=== PATIENT | male | born 1960 | race Caucasian/White ===

== ENCOUNTER → 2021-08-06 | Outpatient (CLI) | payer OTHER ==
[~2021-08-06] MED LIST: PROTONIX40 M2 PO; TIMOLOL MALEATE5 M1 OPHTHALMIC; TYLENOL325 MG PO
[2021-08-06 09:00] LABS: URINE BLOOD NEGATIVE (Negative); URINE CLARITY CLEAR; URINE COLOR YELLOW; URINE GLUCOSE-RANDOM* NEGATIVE (Negative); URINE KETONES TRACE (Negative); URINE LEUKOCYTES-REFLEX NEGATIVE (Negative); URINE NITRITE-REFLEX NEGATIVE (Negative); URINE PROTEIN (DIPSTICK) NEGATIVE (Negative); URINE SPECIFIC GRAVITY >= 1.030 (1.005-1.035); URINE UROBILINOGEN 0.2 E.U./dl (0.2-1.0)
[2021-08-06 09:05] LABS: ICTOTEST (BILI CONFIRMATORY) Negative (Negative); URINE BILIRUBIN NEGATIVE (Negative)
[2021-08-06 09:12] LABS: HEMATOCRIT 42.4 % (42.0-52.0); HEMOGLOBIN 14.5 gm/dL (14.0-18.0); MCH 30.3 pg (26.0-34.0); MCHC 34.1 g/dL (28.0-37.0); MCV 88.8 fL (80.0-100.0); RBC 4.78 mil/uL (4.50-6.00); RDW 12.9 % (10.5-14.5); WBC 7.2 thou/uL (4.0-11.0)
--- NOTE | 2021-08-06 09:12 | EKG ---
[address] [place] [place] [address] ELECTROCARDIOGRAM REPORT Name: ALEJANDRO BAZZI [id number] Admission: 08/06/21 Attend Phys: Sohail Lockhart MD Discharge: Date of : 60 Report #: [id number] [facility] Test Date: 2021-08-06 Test Time: 08:40:58 Pat Name: ALEJANDRO BAZZI Department: Room: Gender: Manager Title: Camryn KURTZ : 1960 Requested By: Sohail Lockhart Order Number: [id number] MD: Kiko Davenport Measurements Intervals [place] Rate: 60 P: 23 UT: 143 QRS: -3 QRSD: 91 T: -2 QT: 432 QTc: 432 Interpretive Statements Sinus rhythm Abnormal R-wave progression, early transition Borderline T abnormalities, inferior leads No previous ECG available for comparison Electronically Signed On 08-06-2021 9:12:08 GRAIN MANAGER by Kiko Davenport [email or web address] <ELECTRONICALLY SIGNED> By: Kiko Davenport MD, [facility] 08/06/2112 9 9 Kiko Davenport MD, FAC /EPI
[2021-08-06 09:24] LABS: ALBUMIN 3.8 g/dL (3.4-5.0); CALCIUM 8.6 mg/dL (8.5-10.1); POTASSIUM 3.8 mmol/L (3.5-5.1)
[2021-08-06 09:26] LABS: INR 0.99; PROTIME 10.8 Seconds (10.5-12.1)
== END ==
LOC: PAC 07:58
PROVIDERS: ATTEND Orthopaedic Surgery
DX: M17.12 Unilateral primary osteoarthritis, left knee (principal)

== ENCOUNTER 2021-08-17 06:06 | Day surgery (SDC) | payer OTHER ==
[~2021-08-17] VITALS: Ht 190.5 cm; Wt 108.9 kg
[2021-08-17 07:25] VITALS: BP 121/71
--- NOTE | 2021-08-17 13:49 | NUR ---
ASSUMED CARE OF PT AT 1130 THIS MORNING POST-OP. PT HAD LT TTL KNEE REPLACEMENT. PT HAS SUMIT DRESSING WITH MAGDA'S, SCD'S AND POLAR PK. DRESSING IS C/D/I. PT IS A/OX4 AND SLEEPING OFF AND ON DUE TO ANESTHESIA. ASSESSMENTS NOTED IN CHART BY RN. FALL PRECAUTIONS IN PLACE, CALL LIGHT AND OTHER NEEDS ARE IN REACH. MEDS AND TX GIVEN NEEDED AND SCHEDULED. WILL MONITOR AND NOTE ANY CHANGES.
[2021-08-17 14:50] VITALS: BP 121/71
--- NOTE | 2021-08-17 14:57 | NUR ---
Chart review. Total knee surgery. Cm notified by physical therapy that he will need roller walker for dc today. Provider plus delivered and he going to do outpt therapy. Independent, 2 steps to enter his home and lives wit his . Will cont following if needs arise.
--- NOTE | 2021-08-19 12:34 | O ---
[facility] [place] [address] OPERATIVE REPORT Name: ALEJANDRO BAZZI Room #: DEP [facility] [place]#: [id number] Admission: 08/17/21 Attend Phys: Sohail Lockhart MD Discharge: 08/17/21 Date of : 60 Report #: [id number] THIS REPORT FOR: cc: Sohail Santiago MD, Scott C. MD Abraham, Scott M. MD ~ DATE OF SERVICE: 08/17/2021 PREOPERATIVE DIAGNOSIS: Left knee osteoarthritis. POSTOPERATIVE DIAGNOSIS: Left knee osteoarthritis. PROCEDURE: Left total knee arthroplasty using Navio robotic assistance. SURGEON: Sohail Lockhart MD MOSAIC TILER: Mariely Palmer PA-C. INDICATION FOR MOSAIC TILER: Throughout the case, extensive retraction and manipulation of the knee was required. This was afforded to me by my clinical trial assistant. ANESTHESIA: LMA with adductor canal block. IMPLANTS: A [employer] size 8 Oxinium Journey II BCS femur, size 7 tibia, size 11 constrained polyethylene and size 38 patella.. TOURNIQUET TIME: 58 minutes. ESTIMATED BLOOD LOSS: 25 mL COMPLICATIONS: None. SPECIMENS: None. CONDITION UPON LEAVING THE OR: Stable. INDICATIONS FOR PROCEDURE: The patient is a 61-year-old gentleman with left knee osteoarthritis. He had failed conservative measures for this and after discussion with him, he elected for left total knee arthroplasty. DESCRIPTION OF PROCEDURE: Risks, benefits, alternatives, complications were discussed in detail with the patient including but not limited to risk of anesthesia, risk of damage to nerves, arteries, blood vessels, risk for infection, bleeding, risk for continued knee pain and need for reoperation. Informed consent was obtained from the patient. Left knee was appropriately marked in the preoperative holding area. IV Ancef was given for preoperative [address] [address] OPERATIVE REPORT Name: MONYSUZANNEALEJANDRO CARLSON FRANCIE Room #: DEP [facility] [place]#: [id number] Admission: 08/17/21 Attend Phys: Sohail Lockhart MD Discharge: 08/17/21 Date of : 60 Report #: [id number] antibiotics. Adductor canal block was placed by anesthesia. He was brought to the operating room and placed in supine position on the operating table. LMA anesthesia was induced without complication. Tourniquet was placed on the left thigh. Left lower extremity was prepped and draped in normal sterile fashion. Timeout was performed properly identifying the patient and procedure as well as the instrumentation and implants. All in the operating room in agreement. Left lower extremity was exsanguinated, tourniquet was inflated. Tourniquet time was 58 minutes. Standard midline approach to the knee was made with 10 blade through the skin. Dissection was taken down sharply to the fascia and deep flaps were developed medially and laterally. Fresh 10 blade was used to make a medial parapatellar arthrotomy and the knee was inspected. There was severe medial compartment and patellofemoral compartment osteoarthritis. ACL and PCL were removed sharply. Reference pins were placed in the femur and the tibia. The knee was digitally mapped using the [employer] robotic system. Intraoperative plan was made. We sized the size 8 femur, the size 7 tibia and a 10 spacer. After acceptance of the intraoperative plan, the distal femoral cut was made with Navio bur. Distal femoral cutting block was pinned in place and chamfer cuts were made. Attention was turned to the tibia. Remainder of the menisci removed with Bovie cautery. Tibial resection guide was pinned in place using Navio for placement and tibial resection was made. Flexion and extension gaps were checked and found to have good balance in flexion and extension both medially and laterally. Tibia sized, found to be a size 7 and size 7 tibial trial was placed, pinned and punched. A size 8 femoral trial was placed and box cut was made. This was then trialed with a size 10 and then a size 11 polyethylene. The size 11 polyethylene demonstrated 1-2 mm laxity medially and laterally throughout range of motion of the knee in deep flexion. It did demonstrate up to 3 mm laterally. It was felt we can make up for this with a constrained implant, 9 mm of bone was resected from the posterior surface of the patella and a size 38 patellar trial button was placed. Knee was taken through range of motion, found to be stable, found to have good patellar tracking. Trial components were removed. Bone ends were thoroughly irrigated with normal saline. A final size 7 tibia, size 8 Journey II BCS Oxinium femur and a size 38 patella were cemented in place using standard cementation techniques. While the cement cured, a periarticular injection consisting of morphine, ropivacaine, epinephrine, Toradol was placed around the knee joint capsule. After the cement cured, the tourniquet was deflated. Hemostasis was obtained with Bovie cautery. A final size 11 constrained polyethylene was placed. A gram of vancomycin was placed deep in the joint. Fascia was closed with 0 Vicryl. Skin was closed with 2-0 Vicryl, 3-0 Monocryl. Dermabond and a SUMIT dressing was applied. The patient tolerated this procedure well and went to recovery room under care of anesthesia postoperatively. <ELECTRONICALLY SIGNED> By: Sohail Lockhart MD 08/19/21 [id number] Sohail Lockhart MD /norris
== END 2021-08-17 15:21 | disposition home or self-care (01) ==
LOC: OR → 4S 06:06 → OR 06:06 → 4S 11:19 → OR 11:23
PROVIDERS: ATTEND Orthopaedic Surgery
DX: M25.562 Pain in left knee (principal); M17.12 Unilateral primary osteoarthritis, left knee; K21.9 Gastro-esophageal reflux disease without esophagitis; Z98.890 Other specified postprocedural states; Z79.899 Other long term (current) drug therapy; Z87.891 Personal history of nicotine dependence; Z20.822 Contact with and (suspected) exposure to COVID-19; Z88.8 Allergy status to other drugs, medicaments and biological substances
CPT/HCPCS: 10102; 50010; 50101; 50415; 50954; 51130; 51225; 53000; 53078; 53365; 54118; 56527; 56528; 57095; 57103; 57110; 57127; 57180; 59024; 62110; 62900; 70005